=== PATIENT | male | born 1945 | race Caucasian/White ===

== ENCOUNTER 2019-09-25 13:57 | Inpatient (IN) | payer OTHER ==
[~2019-09-25] VITALS: Ht 190.5 cm; Wt 108.9 kg
--- NOTE | 2019-09-25 14:35 | NUR ---
SE RECIBE PTE EL CUAL PRESENTA NOTABLE DIFICULTAD PARA HABLAR, NO PRESENTA ASIMETRIA EN GUEVARA DAYANA PTE REFIERE QUE SINTOMAS EMPEZARON EN EL BERNADINE DE HOY LOS CUALES NO MEJORA SE REALIZA EKG EL CUAL SE PRESENTA A DR. PEDRO.
--- NOTE | 2019-09-25 15:20 | NUR ---
SE ORIENTA PTE SOBRE TX MEDICO EL CUAL REFIERE ENTENDER.SE LE EXTRAEN MUESTRAS BAJO MEDIDAS ASEPTICAS Y SE CANALIZA.SE NOTIFICA CT,PTE SIENDO EVALUADO POR DR TASHI BRYANT. 530PM LLAMA PERSONAL DE NUCLEAR QUE PTE SE DESCANALIZO,LLEGO AL AREA,PTE [place] EN AREA DE VENOPUNCIONA Y SE RETIRA LA MISMA.
[2019-09-26] MEDS ORDERED: PREDNISONE2.5 MG (08:18)
[2019-09-29] MEDS ORDERED: ATORVASTATIN CA40 MG PO (09:01)
[2019-09-29] MEDS ORDERED: PLAVIX75 MG PO (09:01)
[2019-09-29] MEDS ORDERED: LOSARTAN POTASS25 MG PO (09:06)
== END 2019-09-29 10:28 | disposition home or self-care (01) | DRG 66 ==
LOC: ER 13:57 → MEDJ 19:21
PROVIDERS: ADMIT Internal Medicine
PROC: 4A12X4Z Monitoring of Cardiac Electrical Activity, External Approach (ICD-10-PCS; principal; 2019-09-25)
DX: I63.81 Other cerebral infarction due to occlusion or stenosis of small artery (principal); R47.81 Slurred speech; M06.9 Rheumatoid arthritis, unspecified; R47.1 Dysarthria and anarthria; I10 Essential (primary) hypertension
CPT/HCPCS: 70551